=== PATIENT | female | born 1975 | race Caucasian/White ===

== ENCOUNTER → 2017-10-08 | Outpatient (CLI) | payer BC ==
--- NOTE | 2017-10-10 11:47 | MM ---
Reason for exam: screening (asymptomatic). History: Patient is nulliparous. Family history of breast cancer in paternal grandmother. Implants in both breasts, 2015. Physical Findings: A clinical breast exam by your physician is recommended on an annual basis and results should be correlated with mammographic findings. MG 3D Screen Mammo Imp/Cad Bilateral CC, MLO, and ID view(s) were taken. No prior studies available for comparison. The breast tissue is extremely dense which could obscure a lesion on mammography. There is no discrete abnormality. Bilateral retropectoral silicone implants. ASSESSMENT: Negative, BI-RAD 1 RECOMMENDATION: Routine screening mammogram of both breasts in 1 year.
== END | disposition home or self-care (01) ==
LOC: RADMAMWWP 13:34
PROVIDERS: ATTEND Obstetrics & Gynecology
DX: Z12.31 Encounter for screening mammogram for malignant neoplasm of breast (principal)
CPT/HCPCS: 77063; 77067

== ENCOUNTER → 2018-01-08 | Outpatient (CLI) | payer BC ==
[2018-01-08 18:05] LABS: Basophils # (A) 0.1 k/uL (0-0.2); Basophils % (A) 1 %; Eosinophils # (A) 0.3 k/uL (0-0.7); Eosinophils % (A) 3 %; HCT 44.9 % (34.0-46.0); HGB 14.8 gm/dL (11.4-16.0); Lymphocytes # (A) 2.8 k/uL (1.0-4.8); Lymphocytes % (A) 26 %; MCH 33.1 pg (25.0-35.0); MCV 100.2 fL (80.0-100.0); Mean Platelet Volume 6.3; Monocytes # (A) 0.4 k/uL (0-1.0); Monocytes % (A) 4 %; Neutrophils # (A) 6.9 k/uL (1.3-7.7); Neutrophils % (A) 65 %; Platelet Count 392 k/uL (150-450); RBC 4.48 m/uL (3.80-5.40); RDW 12.5 % (11.5-15.5); WBC 10.7 k/uL (3.8-10.6)
== END | disposition home or self-care (01) ==
LOC: LABPAT 16:28
PROVIDERS: ATTEND Obstetrics & Gynecology
DX: Z01.812 Encounter for preprocedural laboratory examination (principal); R31.9 Hematuria, unspecified
CPT/HCPCS: 36415; 85025

== ENCOUNTER 2018-01-09 09:09 | Day surgery (SDC) | payer BC ==
[~2018-01-09 09:09] MED LIST: Pre Op ABX Message 1 EACH MISC MISCELLANE ONE
[2018-01-09] MEDS ORDERED: ONDANSETRON 4 MG/2 ML VIAL IVP ONE (09:35)
[2018-01-09] MEDS ORDERED: fentaNYL (PF) 50 MCG/ML 2 ML AMP IV PRN (09:35)
[2018-01-09] MEDS ORDERED: DEXAMETHASONE SOD PHOSPHATE 10 MG/ML 1 ML VIAL IV ONE (09:35)
[2018-01-09] MEDS ORDERED: SCOPOLAMINE 1.5MG/72HR PATCH TRANSDERM ONE (09:35)
[2018-01-09] MEDS ORDERED: LACTATED RINGERS 1,000 ML IV SCH (09:35)
[2018-01-09] MEDS ORDERED: MIDAZOLAM 2 MG/2 ML VIAL IV PRN (09:35)
[2018-01-09] MEDS ORDERED: fentaNYL (PF) 50 MCG/ML 2 ML AMP ONE (10:02)
[2018-01-09] MEDS ORDERED: LIDOCAINE 1% INJ 10MG/ML (20 ML MDV) ONE (10:02)
[2018-01-09] MEDS ORDERED: PROPOFOL 10 MG/ML 20 ML VIAL IV ONE (10:02)
[2018-01-09] MEDS ORDERED: MIDAZOLAM 2 MG/2 ML VIAL ONE (10:02)
[2018-01-09] MEDS ORDERED: LIDOCAINE 1%-EPI 1:100,000 30 ML VIAL SQ ONE (10:14)
--- NOTE | 2018-01-09 10:30 | P.OP ---
Date of Procedure: 01/09/18 Preoperative Diagnosis: Pelvic pain Hematometra status post endometrial ablation Postoperative Diagnosis: Same Procedure(s) Performed: Dilation and curettage Anesthesia: MAC Surgeon: Lorenza Rios Estimated Blood Loss (ml): 5 IV fluids (ml): 400 Urine output (ml): 10 Pathology: other (Endometrial curettings) Condition: stable Disposition: PACU Operative Findings: Small, freely mobile uterus with second to third degree uterine descensus. Densely scarred endometrial cavity. Description of Procedure: After the patient was met in the preoperative holding area and all questions were answered, she was taken to the operating room where anesthetic was administered without incident. She was in positioned, prepped and draped in the dorsal lithotomy position. Single-sided speculum was placed in the vagina and the cervix was grasped anteriorly with a single-tooth tenaculum. She does have with downward traction third-degree prolapse of the uterus. Paracervical block with lidocaine plus epinephrine was placed. The smallest Hegar dilator was utilized to gently attempts to dilate the cervix. This was able to be easily passed. Approximately 4 cm where very dense tissue was encountered. Further dilation of the cervix was gently attempted however I do not believe I was able to enter the endometrial cavity. Curettings were taken but I believe again this is from the endocervical canal. I do not believe the heme endometrial was accessed or drained. I believe further attempts at entering the uterine cavity her dilating might lead to uterine perforation with all potential competitions associated with that. Decision was therefore made to terminate the procedure.
[2018-01-09 10:36] VITALS: TEMP 97.7
[2018-01-09 10:51] VITALS: RESP 16
[2018-01-09 11:42] VITALS: BP 102/65; PULSE 65
== END 2018-01-09 11:51 | disposition home or self-care (01) ==
LOC: OR 09:09
PROVIDERS: ATTEND Obstetrics & Gynecology
DX: N85.7 Hematometra (principal); N81.3 Complete uterovaginal prolapse; J45.909 Unspecified asthma, uncomplicated; K21.9 Gastro-esophageal reflux disease without esophagitis; F17.210 Nicotine dependence, cigarettes, uncomplicated; Z87.11 Personal history of peptic ulcer disease; Z79.1 Long term (current) use of non-steroidal anti-inflammatories (NSAID); Z79.51 Long term (current) use of inhaled steroids; Z79.899 Other long term (current) drug therapy; Z88.5 Allergy status to narcotic agent
CPT/HCPCS: 81025; 88305; 58120; J2250; J1100; J2405; J2001; J3010; J2704

== ENCOUNTER → 2018-01-30 | Outpatient (CLI) | payer BC ==
[2018-01-30 12:22] LABS: Basophils # (A) 0.1 k/uL (0-0.2); Basophils % (A) 1 %; Eosinophils # (A) 0.4 k/uL (0-0.7); Eosinophils % (A) 5 %; HCT 47.2 % (34.0-46.0); HGB 14.8 gm/dL (11.4-16.0); Lymphocytes # (A) 2.7 k/uL (1.0-4.8); Lymphocytes % (A) 28 %; MCH 30.7 pg (25.0-35.0); MCHC 31.3 g/dL (31.0-37.0); MCV 98.2 fL (80.0-100.0); Mean Platelet Volume 6.3; Monocytes # (A) 0.5 k/uL (0-1.0); Monocytes % (A) 5 %; Neutrophils # (A) 5.9 k/uL (1.3-7.7); Neutrophils % (A) 60 %; Platelet Count 394 k/uL (150-450); RBC 4.81 m/uL (3.80-5.40); RDW 12.5 % (11.5-15.5); WBC 9.7 k/uL (3.8-10.6)
[2018-01-30 12:43] LABS: Anion Gap 8 mmol/L; Blood Urea Nitrogen 13 mg/dL (7-17); Carbon Dioxide 25 mmol/L (22-30); Chloride 106 mmol/L (98-107); Glucose 102 mg/dL (74-99); Potassium 4.9 mmol/L (3.5-5.1); Sodium 139 mmol/L (137-145)
== END | disposition home or self-care (01) ==
LOC: LABPAT 11:55
PROVIDERS: ATTEND Obstetrics & Gynecology
DX: Z01.812 Encounter for preprocedural laboratory examination (principal); N94.6 Dysmenorrhea, unspecified
CPT/HCPCS: 36415; 80051; 82565; 82947; 84520; 85025; 87086

== ENCOUNTER 2018-02-02 07:40 | Observation (INO) | payer BC ==
[2018-01-22 14:57] VITALS: BMI 18.8
[~2018-02-02 07:40] MED LIST changes: +DEXAMETHASONE SOD PHOSPHATE 10 MG/ML 1 ML VIAL IV ONE; +LACTATED RINGERS 1,000 ML IV SCH; +LIDOCAINE 1% 20 ML VIAL (10MG/ML) FOR IV START INTRADERMA PRN; +MIDAZOLAM 2 MG/2 ML VIAL IV PRN; +ONDANSETRON 4 MG/2 ML VIAL IVP ONE; -Pre Op ABX Message 1 EACH MISC MISCELLANE ONE; +SCOPOLAMINE 1.5MG/72HR PATCH TRANSDERM ONE; +ceFAZolin IN SWFI 2 GM/20 ML SYRINGE IVP ONE
[2018-02-02] MEDS ORDERED: FAMOTIDINE 20 MG/2 ML VIAL ONE (08:25)
[2018-02-02] MEDS ORDERED: METOCLOPRAMIDE 5 MG/ML 2 ML VIAL ONE (08:25)
[2018-02-02] MEDS ORDERED: KETOROLAC 30 MG/ML 1 ML VIAL IVP PRN (08:49)
[2018-02-02] MEDS ORDERED: diphenhydrAMINE 50 MG/ML 1 ML VIAL IVP PRN (08:49)
[2018-02-02] MEDS ORDERED: NALBUPHINE 10 MG/ML VIAL (10ML MDV) IV PRN (08:49)
[2018-02-02] MEDS ORDERED: NALOXONE 0.4 MG/ML 1 ML VIAL IV PRN (08:49)
[2018-02-02] MEDS ORDERED: GLYCOPYRROLATE 0.2 MG/ML 2 ML VIAL ONE (09:01)
[2018-02-02] MEDS ORDERED: fentaNYL (PF) 50 MCG/ML 2 ML AMP ONE (09:01)
[2018-02-02] MEDS ORDERED: PROPOFOL 10 MG/ML 20 ML VIAL IV ONE (09:01)
[2018-02-02] MEDS ORDERED: ROCURONIUM BROMIDE 10 MG/ML 10 ML VIAL IV ONE (09:01)
[2018-02-02] MEDS ORDERED: NEOSTIGMINE 1 MG/ML 10 ML VIAL ONE (09:01)
[2018-02-02] MEDS ORDERED: LIDOCAINE 1% INJ 10MG/ML (20 ML MDV) ONE (09:01)
[2018-02-02] MEDS ORDERED: SUCCINYLCHOLINE CHLORIDE 100 MG/5 ML SYR IV ONE (09:01)
[2018-02-02] MEDS ORDERED: VASOPRESSIN 20 UNIT/ML 1 ML VIAL IM ONE (09:25)
[2018-02-02] MEDS ORDERED: LACTATED RINGERS 1,000 ML IV ONE (09:54)
[2018-02-02] MEDS ORDERED: BACITRACIN OINT 1 EACH PACKET TOPICAL ONE (10:13)
--- NOTE | 2018-02-02 10:23 | P.OP ---
Date of Procedure: 02/02/18 Preoperative Diagnosis: Hematometra Pelvic pain Postoperative Diagnosis: Same Procedure(s) Performed: Total vaginal hysterectomy Anesthesia: CYDNEYA, hazel Surgeon: Lorenza Rios Vice Chairman #1: Homar Salazar Estimated Blood Loss (ml): 10 IV fluids (ml): 800 Urine output (ml): 35 Pathology: other (Uterus) Condition: stable Disposition: PACU Operative Findings: Small, normal appearing cervix and uterus. Bilateral normal-appearing fallopian tubes and ovaries. Description of Procedure: After the patient and her were met in the preoperative holding area and all questions were answered, she was taken to the operating room where anesthetic was administered without incident. She was positioned, prepped and draped in the dorsal high lithotomy position. The bladder was drained for a scant amount of urine at the beginning of the procedure. Weighted speculum was placed in the vagina and the cervix was grasped anteriorly with a single-tooth tenaculum. Dilute vasopressin solution was then infused circumferentially and the vaginal mucosa about the cervix. Scalpel was then utilized to make a circumferential incision around the cervix. The anterior and posterior vaginal Koza was bluntly and dissected away from the underlying cervix. The posterior vaginal Koza was placed on countertraction and the posterior peritoneum was attempted to be entered. Was not on immediately clear the posterior peritoneum had been entered therefore the anterior peritoneum was further dissected away. The Dolly clamps were utilized to clamp cut and suture ligate the uterosacral ligaments. These were tagged bilaterally. 2-0 Vicryl suture was used. The posterior peritoneum then was easier to visualize was placed again on countertraction. It was then entered sharply. The posterior peritoneum was tagged with a 2-0 Vicryl suture and the short weighted speculum was replaced with the long weighted speculum. The anterior vaginal Koza bladder were further advanced. The broad ligaments were clamped cut and suture ligated. The uterine vascularity was clamped cut and suture ligated bilaterally. This allowed for the posterior fundus of the uterus to be delivered. The anterior peritoneum was then entered with the electrocautery. The cornual pedicles were then clamped, cut and doubly suture ligated bilaterally. The right and left ovaries were easily visualized and appeared small and normal. There was no active bleeding noted. Therefore the weighted speculum was removed the short weighted speculum was replaced. The peritoneum was then closed in a pursestring fashion. The uterosacral ligaments that had previously been tagged were reapproximated in the midline incorporating the vaginal mucosa laterally. The cuff was then closed anterior to posterior in an interrupted fashion with 0 Vicryl suture. The vaginal Koza was observed and noted to be hemostatic. Bacitracin-soaked 2 inch iodoform gauze was then placed in the vagina and a Rodríguez catheter was placed. Clear urine was noted. All counts reported to me as correct by the operating room staff and the patient was awoken from anesthetic and transported to recovery area in good condition.
[2018-02-02] MEDS ORDERED: ALBUTEROL NEBULIZED 2.5 MG/3 ML INHALATION PRN (10:31)
[2018-02-02] MEDS: HYDROmorphone 0.5 MG/0.5 ML SYRINGE IVP PRN ×2 (10:35→11:08)
[2018-02-02] MEDS ORDERED: HYDROcodone/APAP 5-325MG 1 EACH TAB PO PRN (10:37)
[2018-02-02] MEDS ORDERED: IBUPROFEN 600 MG TAB PO PRN (10:37)
[2018-02-02] MEDS ORDERED: LACTATED RINGERS 1,000 ML IV SCH (10:37)
[2018-02-02] MEDS ORDERED: SENNOSIDES-DOCUSATE SODIUM 1 EACH TAB PO PRN (10:37)
[2018-02-02] MEDS ORDERED: ONDANSETRON 4 MG/2 ML VIAL IVP PRN (10:37)
[2018-02-02] MEDS ORDERED: METOCLOPRAMIDE 5 MG/ML 2 ML VIAL IVP PRN (10:37)
[2018-02-02] MEDS ORDERED: SIMETHICONE 80 MG CHEWABLE PO PRN (10:37)
[2018-02-02] MEDS ORDERED: traMADol 50 MG TAB PO PRN (16:43)
[2018-02-02] MEDS: KETOROLAC 30 MG/ML 1 ML VIAL IVP PRN (19:29)
[2018-02-03] MEDS: KETOROLAC 30 MG/ML 1 ML VIAL IVP PRN (04:38)
[2018-02-03 04:54] VITALS: RESP 18
[2018-02-03 06:43] LABS: Basophils # (A) 0.1 k/uL (0-0.2); Basophils % (A) 0 %; Eosinophils # (A) 0.3 k/uL (0-0.7); Eosinophils % (A) 2 %; HCT 39.8 % (34.0-46.0); HGB 12.6 gm/dL (11.4-16.0); Lymphocytes # (A) 3.9 k/uL (1.0-4.8); Lymphocytes % (A) 33 %; MCH 30.8 pg (25.0-35.0); MCHC 31.6 g/dL (31.0-37.0); MCV 97.4 fL (80.0-100.0); Mean Platelet Volume 6.5; Monocytes # (A) 0.6 k/uL (0-1.0); Monocytes % (A) 5 %; Neutrophils # (A) 6.7 k/uL (1.3-7.7); Neutrophils % (A) 57 %; Platelet Count 318 k/uL (150-450); RBC 4.09 m/uL (3.80-5.40); RDW 12.4 % (11.5-15.5); WBC 11.8 k/uL (3.8-10.6)
--- NOTE | 2018-02-03 07:18 | P.PN ---
Progress Note - Text 02/03 715am 42-year-old female status post vaginal hysterectomy by Dr. Rios. Patient had SPINAL Duramorph for postop pain control, patient has a VAS of 0 with no complains of nausea vomiting or pruritus. Doing well
[2018-02-03 07:58] VITALS: BP 101/63; PULSE 54; TEMP 97.8
--- NOTE | 2018-02-03 08:30 | P.DS ---
Providers Date of admission: 02/03/18 05:03 Expected date of discharge: 02/03/18 Attending physician: Lorenza Rios Primary care physician: Mariusz Ruby - Discharge Diagnosis(es) (1) Pelvic pain Current Visit: Yes Status: Acute (2) Hematometra Current Visit: Yes Status: Acute Hospital Course: This is a 42-year-old woman with pelvic pain and heme endometrial status post endometrial ablation in the past. Conservative management had failed. She was therefore admitted on 02/02/2018 to undergo total vaginal hysterectomy. She had the procedure done under a spinal anesthetic with unremarkable findings at the time of surgery. Please see the operative report for details. She did very well postoperatively. By the evening of postoperative day 0 she was tolerating a general diet and was ambulating. By postoperative day #1 her Rodríguez catheter and vaginal packing had been removed. She had no active vaginal bleeding. Her vital signs were stable. Her pain was well-controlled with oral pain medications and she was ambulating and voiding without difficulty. Her physical examination was unremarkable and her postoperative labs were stable. She was therefore discharged home on postoperative day #1 with routine instructions for care and follow-up. Plan - Discharge Summary New Discharge Prescriptions: No Action Albuterol Inhaler [Ventolin Hfa Inhaler] 2 puff INHALATION BID PRN PRN Reason: sob Ranitidine HCl [Zantac] 75 mg PO BID PRN PRN Reason: Heartburn Amoxicillin 1,000 mg PO BID traMADol HCL [Ultram] 25 mg PO DIRECTED PRN PRN Reason: Pain Discharge Medication List Albuterol Inhaler [Ventolin Hfa Inhaler] 2 puff INHALATION BID PRN 09/18/15 [ History] Ranitidine HCl [Zantac] 75 mg PO BID PRN 09/19/15 [History] Amoxicillin 1,000 mg PO BID 01/22/18 [History] traMADol HCL [Ultram] 25 mg PO DIRECTED PRN 01/22/18 [History] Follow up Appointment(s)/Referral(s): Lorenza Rios MD [STAFF PHYSICIAN] - 2 Weeks Activity/Diet/Wound Care/Special Instructions: Follow-up in the office 2 weeks postoperatively. May use home prescription for tramadol for pain. Call the office with any concerning signs or symptoms including heavy vaginal bleeding, foul vaginal discharge, fever greater than 100.5, severe abdominal or pelvic pain, significant constipation or diarrhea. No heavy lifting, vigorous activities or driving for 2 weeks. Nothing in the vagina, no intercourse, tampons or douching for 6 weeks. Discharge Disposition: HOME SELF-CARE
[2018-02-03] MEDS ORDERED: ACETAMINOPHEN TAB 325 MG TAB PO PRN (10:28)
== END 2018-02-03 08:56 | disposition home or self-care (01) ==
LOC: OR 07:40 → 6PED 10:26 → OR 02-03 05:02 → 6PED 02-03 05:03
PROVIDERS: ADMIT Obstetrics & Gynecology; ATTEND Obstetrics & Gynecology
DX: R10.2 Pelvic and perineal pain (principal); R10.9 Unspecified abdominal pain; N94.6 Dysmenorrhea, unspecified; N85.7 Hematometra; G89.29 Other chronic pain; J45.909 Unspecified asthma, uncomplicated; F17.210 Nicotine dependence, cigarettes, uncomplicated; Z90.49 Acquired absence of other specified parts of digestive tract; Z87.11 Personal history of peptic ulcer disease; Z88.5 Allergy status to narcotic agent; Z79.899 Other long term (current) drug therapy; Z82.49 Family history of ischemic heart disease and other diseases of the circulatory system; Z80.8 Family history of malignant neoplasm of other organs or systems
CPT/HCPCS: 81025; 85025; 88307; 58260; G0378; J2250; J1200; J1100; J2765; J2405; J1885 ×2; J1170; J0690; 86850; 86900; 86901

== ENCOUNTER → 2021-01-25 | Outpatient (CLI) | payer BC ==
--- NOTE | 2021-01-29 08:45 | MM ---
Reason for exam: screening (asymptomatic). Last mammogram was performed 3 years and 4 months ago. History: Patient is nulliparous. Family history of breast cancer in paternal grandmother. Implants in both breasts, 2015. Physical Findings: A clinical breast exam by your physician is recommended on an annual basis and results should be correlated with mammographic findings. MG 3D Screen Mammo Imp/Cad Bilateral CC and MLO view(s) were taken. Prior study comparison: October 08, 2017, bilateral MG 3d screen mammo imp/cad. The breast tissue is heterogeneously dense. This may lower the sensitivity of mammography. Bilateral retropectoral implants. No significant changes when compared with prior studies. ASSESSMENT: Negative, BI-RAD 1 RECOMMENDATION: Routine screening mammogram of both breasts in 1 year. Patient should continue monthly self breast exams. A negative report should not preclude additional follow up of suspicious palpable abnormalities.
== END | disposition home or self-care (01) ==
LOC: RADMAMWWP 16:20
PROVIDERS: ATTEND Obstetrics & Gynecology
DX: Z12.31 Encounter for screening mammogram for malignant neoplasm of breast (principal); Z80.3 Family history of malignant neoplasm of breast
CPT/HCPCS: 77063; 77067

== ENCOUNTER 2021-02-10 22:07 | Emergency (ER) | payer BC ==
[2021-02-10 22:22] VITALS: TEMP 98.6
[2021-02-10] MEDS ORDERED: PANTOPRAZOLE 40 MG/10 ML VIAL IVP STA (22:41)
[2021-02-10] MEDS ORDERED: ONDANSETRON 4 MG/2 ML VIAL IVP STA (22:41)
[2021-02-10] MEDS ORDERED: SODIUM CHLORIDE 0.9% 1,000 ML IV STA (22:41)
[2021-02-10] MEDS ORDERED: KETOROLAC 15 MG/ML 1 ML VIAL IVP STA (22:42)
[2021-02-10] MEDS ORDERED: diphenhydrAMINE 50 MG/ML 1 ML VIAL IVP STA (22:43)
[2021-02-10 23:20] LABS: Basophils # (A) 0.1 k/uL (0-0.2); Basophils % (A) 1 %; Eosinophils # (A) 0.1 k/uL (0-0.7); Eosinophils % (A) 1 %; HGB 17.3 gm/dL (11.4-16.0); Lymphocytes # (A) 2.6 k/uL (1.0-4.8); Lymphocytes % (A) 19 %; MCH 33.5 pg (25.0-35.0); MCHC 34.5 g/dL (31.0-37.0); MCV 97.1 fL (80.0-100.0); Mean Platelet Volume 7.2; Monocytes # (A) 0.5 k/uL (0-1.0); Monocytes % (A) 4 %; Neutrophils # (A) 10.1 k/uL (1.3-7.7); Neutrophils % (A) 74 %; Platelet Count 443 k/uL (150-450); RBC 5.15 m/uL (3.80-5.40); RDW 11.8 % (11.5-15.5); WBC 13.7 k/uL (3.8-10.6)
[2021-02-10 23:26] LABS: Appearance,Urine Cloudy (Clear); Bilirubin,Urine Negative (Negative); Blood,Urine Trace (Negative); Color,Urine Yellow; Glucose,Urine (UA) Negative (Negative); Ketones,Urine 4+ (Negative); Leukocyte Esterase,Urine Negative (Negative); Mucus,Urine Many /hpf; Nitrite,Urine Negative (Negative); Protein,Urine 1+ (Negative); RBC,Urine 11 /hpf (0-5); Specific Gravity,Urine 1.032 (1.001-1.035); Squamous Epithelial Cell,Urine 3 /hpf (0-4); WBC,Urine 2 /hpf (0-5)
--- NOTE | 2021-02-10 23:28 | XR ---
EXAMINATION TYPE: XR KUB DATE OF EXAM: 02/10/2021 COMPARISON: NONE HISTORY: Pain TECHNIQUE: 2 views upright FINDINGS: There is no sign of intestinal obstruction or pneumoperitoneum. Fecal pattern is normal. Th ere are clips from cholecystectomy. Lung bases are clear. There are no pathologic calcifications. IMPRESSION: Nonacute abdomen.
[2021-02-10 23:35] LABS: Partial Thromboplastin Time 22.5 sec (22.0-30.0); Prothrombin Time 10.8 sec (9.0-12.0)
--- NOTE | 2021-02-10 23:35 | ED ---
Abdominal Pain HPI - General Chief Complaint: Abdominal Pain Stated Complaint: vomiting Time Seen by Provider: 02/10/21 22:27 Source: patient Mode of arrival: wheelchair Limitations: no limitations - History of Present Illness Initial Comments: Patient is a 45-year-old female presenting to the emergency Department with complaints of abdominal pain, nausea and vomiting for the past 3 days. She states she's had history of pancreatitis in the past and this feels similar. She states it's usually brought on by stress. They have been in [place] for t he past few days looking at houses. Patient denies any fevers or chills. She describes the pain is all epigastric, no radiation. She's had history of cholecystectomy, appendectomy, hysterectomy. She denies any diarrhea, no dysuria. She denies any chest pain or shortness of breath. She is no further complaints. - Related Data Home Medications Medication Instructions Recorded Confirmed Albuterol Inhaler (Mhu) [Ventolin 2 puff INHALATION BID PRN 09/18/15 02/03/18 Hfa Inhaler] raNITIdine HCL [Zantac] 75 mg PO BID PRN 09/19/15 02/03/18 Amoxicillin 1,000 mg PO BID 01/22/18 02/03/18 traMADol HCL [Ultram] 25 mg PO DIRECTED PRN 01/22/18 02/03/18 Previous Rx's Medication Instructions Recorded Ondansetron Odt [Zofran Odt] 4 mg PO Q8HR PRN #10 tab 02/11/21 Allergies Allergy/AdvReac Type Severity Reaction Status Date / Time codeine Allergy Severe Vomiting Verified 02/10/21 22:21 Review of Systems ROS Statement: Those systems with pertinent positive or pertinent negative responses have been documented in the HPI. ROS Other: All systems not noted in ROS Statement are negative. Past Medical History Past Medical History: Asthma, GERD/Reflux Additional Past Medical History / Comment(s): varicose veins, recent dx H. Pylori-finishing rx, IBS, arthritis, kidney stones, abdominal cramping History of Any Multi-Drug Resistant Organisms: None Reported Past Surgical History: Appendectomy, Breast Surgery, Cholecystectomy, Tonsillectomy, Uterine Ablation Additional Past Surgical History / Comment(s): OVARIAN CYST REMOVAL, RHINOPLASTY, BILATERAL BREAST IMPLANTS, D&C x2 Past Anesthesia/Blood Transfusion Reactions: Motion Sickness Past Psychological History: No Psychological Hx Reported Smoking Status: Current every day smoker Past Alcohol Use History: None Reported Past Drug Use History: None Reported - Past Family History Father Family Medical History: Cancer Additional Family Medical History / Comment(s): pancreatic Mother Family Medical History: Deep Vein Thrombosis (DVT) Additional Family Medical History / Comment(s): AORTIC ANEURYSM General Exam - General Exam Comments Initial Comments: GENERAL: Patient is well-developed and well-nourished. Patient is nontoxic and moderate distress. HEAD: Atraumatic, normocephalic. EYES: Pupils equal round and reactive to light, extraocular movements intact, sclera anicteric, conjunctiva are normal. Eyelids were unremarkable. ENT: Nares patent, oropharynx clear without exudates. Moist mucous membranes. NECK: Normal range of motion, supple without lymphadenopathy or JVD. LUNGS: Unlabored respirations. Breath sounds clear to auscultation bilaterally and equal. No wheezes rales or rhonchi. HEART: Regular rate and rhythm without murmurs, rubs or gallops. ABDOMEN: Soft, tender to palpation in epigastric region, normoactive bowel sounds. No guarding, no rebound. No masses appreciated. : Deferred MUSCULOSKELETAL: Normal extremities with adequate strength and normal range of motion, no pitting or edema. No clubbing or cyanosis. NEUROLOGICAL: Patient is alert and oriented x 3. PSYCH: Normal mood, normal affect. SKIN: Warm, Dry, normal turgor, no rashes or lesions noted. Limitations: no limitations Course Vital Signs 02/10/21 02/11/21 22:18 00:33 Temperature 98.6 F 98.6 F Pulse Rate 59 L 66 Respiratory 20 16 Rate Blood Pressure 99/61 93/60 O2 Sat by Pulse 99 97 Oximetry Medical Decision Making - Medical Decision Making Patient is a 45-year-old female here with epigastric pain, nausea and vomiting o shweta the past 2-3 days. She does have history of pancreatitis and this does feel similar. She is also been really stressed over the past 3-4 days and sometimes gets abdominal pain with this. Her vitals are stable. Labs reveal a slight white count at 13.7, this is most likely reactive, rest of labs are within normal limits including negative troponin, lipase is 81, lactic is 1.3. Patient's urine did show 4+ ketones. No signs of infection. The no acute process. Patient given fluids, Protonix, Toradol and Benadryl. She reports significant improvement in her symptoms, she is requesting to go home and rest. I will give her a starter pack of Zofran for any additional nausea. She'll follow-up with her doctors. Return parameters were discussed with her and she verbalized understanding. Case discussed with Dr. Flores. - Lab Data Result diagrams: 02/10/21 22:46 02/10/21 22:46 Lab Results 02/10/21 02/10/21 02/10/21 Range/Units 22:46 22:46 22:46 WBC 13.7 H (3.8-10.6) k/uL RBC 5.15 (3.80-5.40) m/uL Hgb 17.3 H (11.4-16.0) gm/dL Hct 50.0 H (34.0-46.0) % MCV 97.1 (80.0-100.0) fL MCH 33.5 (25.0-35.0) pg MCHC 34.5 (31.0-37.0) g/dL RDW 11.8 (11.5-15.5) % Plt Count 443 (150-450) k/uL MPV 7.2 Neutrophils % 74 % Lymphocytes % 19 % Monocytes % 4 % Eosinophils % 1 % Basophils % 1 % Neutrophils # 10.1 H (1.3-7.7) k/uL Lymphocytes # 2.6 (1.0-4.8) k/uL Monocytes # 0.5 (0-1.0) k/uL Eosinophils # 0.1 (0-0.7) k/uL Basophils # 0.1 (0-0.2) k/uL PT (9.0-12.0) sec INR (<1.2) APTT (22.0-30.0) sec Sodium 134 L (137-145) mmol/L Potassium 3.9 (3.5-5.1) mmol/L Chloride 101 (98-107) mmol/L Carbon Dioxide 19 L (22-30) mmol/L Anion Gap 14 mmol/L BUN 16 (7-17) mg/dL Creatinine 0.72 (0.52-1.04) mg/dL Est GFR (CKD-EPI)AfAm >90 (>60 ml/min/1.73 sqM) Est GFR (CKD-EPI)NonAf >90 (>60 ml/min/1.73 sqM) Glucose 102 H (74-99) mg/dL Plasma Lactic Acid Lakhwinder (0.7-2.0) mmol/L Calcium 9.9 (8.4-10.2) mg/dL Total Bilirubin 1.7 H (0.2-1.3) mg/dL AST 23 (14-36) U/L ALT 23 (4-34) U/L Alkaline Phosphatase 70 (38-126) U/L Troponin I (0.000-0.034) ng/mL Total Protein 7.1 (6.3-8.2) g/dL Albumin 4.7 (3.5-5.0) g/dL Amylase 33 (30-110) U/L Lipase 81 (23-300) U/L Urine Color Yellow Urine Appearance Cloudy H (Clear) Urine pH 6.0 (5.0-8.0) Ur Specific [place] 1.032 (1.001-1.035) Urine Protein 1+ H (Negative) Urine Glucose (UA) Negative (Negative) Urine Ketones 4+ H (Negative) Urine Blood Trace H (Negative) Urine Nitrite Negative (Negative) Urine Bilirubin Negative (Negative) Urine Urobilinogen 3.0 (<2.0) mg/dL Ur Leukocyte Esterase Negative (Negative) Urine RBC 11 H (0-5) /hpf Urine WBC 2 (0-5) /hpf Ur Squamous Epith Cells 3 (0-4) /hpf Urine Mucus Many H (None) /hpf 02/10/21 02/10/21 02/10/21 Range/Units 22:46 22:46 22:46 WBC (3.8-10.6) k/uL RBC (3.80-5.40) m/uL Hgb (11.4-16.0) gm/dL Hct (34.0-46.0) % MCV (80.0-100.0) fL MCH (25.0-35.0) pg MCHC (31.0-37.0) g/dL RDW (11.5-15.5) % Plt Count (150-450) k/uL MPV Neutrophils % % Lymphocytes % % Monocytes % % Eosinophils % % Basophils % % Neutrophils # (1.3-7.7) k/uL Lymphocytes # (1.0-4.8) k/uL Monocytes # (0-1.0) k/uL Eosinophils # (0-0.7) k/uL Basophils # (0-0.2) k/uL PT 10.8 (9.0-12.0) sec INR 1.0 (<1.2) APTT 22.5 (22.0-30.0) sec Sodium (137-145) mmol/L Potassium (3.5-5.1) mmol/L Chloride (98-107) mmol/L Carbon Dioxide (22-30) mmol/L Anion Gap mmol/L BUN (7-17) mg/dL Creatinine (0.52-1.04) mg/dL Est GFR (CKD-EPI)AfAm (>60 ml/min/1.73 sqM) Est GFR (CKD-EPI)NonAf (>60 ml/min/1.73 sqM) Glucose (74-99) mg/dL Plasma Lactic Acid Lakhwinder 1.3 (0.7-2.0) mmol/L Calcium (8.4-10.2) mg/dL Total Bilirubin (0.2-1.3) mg/dL AST (14-36) U/L ALT (4-34) U/L Alkaline Phosphatase (38-126) U/L Troponin I <0.012 (0.000-0.034) ng/mL Total Protein (6.3-8.2) g/dL Albumin (3.5-5.0) g/dL Amylase (30-110) U/L Lipase (23-300) U/L Urine Color Urine Appearance (Clear) Urine pH (5.0-8.0) Ur Specific [place] (1.001-1.035) Urine Protein (Negative) Urine Glucose (UA) (Negative) Urine Ketones (Negative) Urine Blood (Negative) Urine Nitrite (Negative) Urine Bilirubin (Negative) Urine Urobilinogen (<2.0) mg/dL Ur Leukocyte Esterase (Negative) Urine RBC (0-5) /hpf Urine WBC (0-5) /hpf Ur Squamous Epith Cells (0-4) /hpf Urine Mucus (None) /hpf - EKG Data EKG Comments: Sinus rhythm with short CO, no ST segment elevation. Ventricular rate 60, CO interval 106, QTC 418. Disposition Clinical Impression: Epigastric abdominal pain, Nausea & vomiting, Dehydration Disposition: HOME SELF-CARE Condition: Stable Instructions (If sedation given, give patient instructions): Abdominal Pain (ED) Additional Instructions: Please return to the Emergency Department if symptoms worsen or any other concerns. Continue to increase your fluid intake over the next few days. May take Zofran for any additional nausea, every 8 hours. Follow-up with your primary care physician. Prescriptions: Ondansetron Odt [Zofran Odt] 4 mg PO Q8HR PRN #10 tab PRN Reason: Nausea Is patient prescribed a controlled substance at d/c from ED?: No Referrals: Mariusz Ruby MD [Primary Care Provider] - 1-2 days Time of Disposition: 00:14
[2021-02-10 23:38] LABS: ALT 23 U/L (4-34); AST 23 U/L (14-36); African American GFR (CKD) >90 (>60 ml/min/1.73 sqM); Albumin 4.7 g/dL (3.5-5.0); Alkaline Phosphatase 70 U/L (38-126); Amylase 33 U/L (30-110); Anion Gap 14 mmol/L; Blood Urea Nitrogen 16 mg/dL (7-17); Calcium 9.9 mg/dL (8.4-10.2); Carbon Dioxide 19 mmol/L (22-30); Chloride 101 mmol/L (98-107); Glucose 102 mg/dL (74-99); Lipase 81 U/L (23-300); Non-African American GFR(CKD) >90 (>60 ml/min/1.73 sqM); Potassium 3.9 mmol/L (3.5-5.1); Sodium 134 mmol/L (137-145); Total Bilirubin 1.7 mg/dL (0.2-1.3); Total Protein 7.1 g/dL (6.3-8.2)
[2021-02-11] MEDS ORDERED: ONDANSETRON 4 MG ODT STARTER PACK 2 TAB BTL PO STA (00:13)
[2021-02-11 00:37] VITALS: BP 93/60; PULSE 66; RESP 16
== END 2021-02-11 00:34 | disposition home or self-care (01) ==
LOC: EC 22:07
DX: R10.13 Epigastric pain (principal); R11.2 Nausea with vomiting, unspecified; E86.0 Dehydration; J45.909 Unspecified asthma, uncomplicated; K21.9 Gastro-esophageal reflux disease without esophagitis; F17.200 Nicotine dependence, unspecified, uncomplicated; Z88.6 Allergy status to analgesic agent; Z87.442 Personal history of urinary calculi; Z90.49 Acquired absence of other specified parts of digestive tract; Z90.89 Acquired absence of other organs; Z87.19 Personal history of other diseases of the digestive system
CPT/HCPCS: 99284; 96374; 96375 ×3; 96361; 36415; 93005; 80053; 82150; 83605; 83690; 84484; 85025; 85610; 85730; 81001; 74018; J1200; J2405; J1885; S0119; C9113

== ENCOUNTER → 2022-11-18 | Outpatient (CLI) | payer BC ==
--- NOTE | 2022-11-18 13:03 | XR ---
EXAMINATION TYPE: XR KUB DATE OF EXAM: 11/18/2022 Comparison: 02/10/2021 Clinical History: 47-year-old female left kidney stone N20.0 Findings: Cholecystectomy clips. Nonobstructive bowel gas pattern. Moderate stool burden. Numerous pelvic phleb olith. Possible faint 4 mm calcification left mid abdomen. Lung bases are clear. Impression: Possible faint 4 mm left renal calculus. Cholecystectomy clips. Moderate stool burden.
== END | disposition home or self-care (01) ==
LOC: RADXRMAIN 12:02
PROVIDERS: ATTEND Urology
DX: N20.0 Calculus of kidney (principal)
CPT/HCPCS: 74018

== ENCOUNTER 2022-12-15 02:03 | Emergency (ER) | payer BC ==
[2022-12-15 02:27] VITALS: BP 100/51; PULSE 74; RESP 16; TEMP 97.6
[2022-12-15] MEDS ORDERED: SODIUM CHLORIDE 0.9% 1,000 ML IV STA (02:27)
--- NOTE | 2022-12-15 02:29 | ED ---
General Adult HPI - General Chief complaint: Urogenital Stated complaint: kidney stone Time Seen by Provider: 12/15/22 02:14 Source: patient Mode of arrival: EMS Limitations: no limitations - History of Present Illness Initial comments: Dictation was produced using [employer] dictation software. please excuse any grammatical, word or spelling errors. Chief Complaint: 47-year-old female with extensive kidney stone history presents via EMS from outside ER for further care History of Present Illness: 47 female presents with several hours of left-sided flank pain. She was seen at [facility] emergency Department were extensive workup was performed. She do not have white count of 18, 5 mm left proximal ureteral stone. She was also diagnosed with urinary tract infection. Patient was transferred here for further care. Outside ER doctor suspect that patient had infected kidney stone. Patient denies any fever. Denies any constitutional symptoms. She did not feel the need to be transferred to ER and initially wanted to be discharged home however ER doc told her that she could become septic. Patient states that her pain slowly migrated down peripherally. The ROS documented in this emergency department record has been reviewed and confirmed by me. Those systems with pertinent positive or negative responses have been documented in the HPI. All other systems are other negative and/or noncontributory. - Related Data Home Medications Medication Instructions Recorded Confirmed Albuterol Inhaler [Ventolin Hfa 2 puff INHALATION BID PRN 09/18/15 02/03/18 Inhaler] raNITIdine HCL [Zantac] 75 mg PO BID PRN 09/19/15 02/03/18 Amoxicillin 1,000 mg PO BID 01/22/18 02/03/18 traMADol HCL [Ultram] 25 mg PO DIRECTED PRN 01/22/18 02/03/18 Previous Rx's Medication Instructions Recorded Ondansetron Odt [Zofran Odt] 4 mg PO Q8HR PRN #10 tab 02/11/21 Cefpodoxime Proxetil [Vantin] 200 mg PO Q12HR 10 Days #20 tab 12/15/22 Allergies Allergy/AdvReac Type Severity Reaction Status Date / Time codeine Allergy Severe Vomiting Verified 02/10/21 22:21 Review of Systems ROS Statement: Those systems with pertinent positive or pertinent negative responses have been documented in the HPI. ROS Other: All systems not noted in ROS Statement are negative. Past Medical History Past Medical History: Asthma, GERD/Reflux Additional Past Medical History / Comment(s): varicose veins, recent dx H. Pylori-finishing rx, IBS, arthritis, kidney stones, abdominal cramping History of Any Multi-Drug Resistant Organisms: None Reported Past Surgical History: Appendectomy, Breast Surgery, Cholecystectomy, Tonsillectomy, Uterine Ablation Additional Past Surgical History / Comment(s): OVARIAN CYST REMOVAL, RHINOPLASTY, BILATERAL BREAST IMPLANTS, D&C x2 Past Anesthesia/Blood Transfusion Reactions: Motion Sickness Past Psychological History: No Psychological Hx Reported Smoking Status: Current every day smoker Past Alcohol Use History: None Reported Past Drug Use History: None Reported - Past Family History Father Family Medical History: Cancer Additional Family Medical History / Comment(s): pancreatic Mother Family Medical History: Deep Vein Thrombosis (DVT) Additional Family Medical History / Comment(s): AORTIC ANEURYSM General Exam - General Exam Comments Initial Comments: PHYSICAL EXAM: General Impression: Alert and oriented x3, not in acute distress HEENT: Normocephalic atraumatic, extra-ocular movements intact, pupils equal and reactive to light bilaterally, mucous membranes moist. Cardiovascular: Heart regular rate and rhythm Chest: Able to complete full sentences, no retractions, no tachypnea Abdomen: abdomen soft, non-tender, non-distended, no organomegaly Musculoskeletal: Pulses present and equal in all extremities, no peripheral edema Motor: no focal deficits noted Neurological: CN II-XII grossly intact, no focal motor or sensory deficits noted Skin: Intact with no visualized rashes Psych: Normal affect and mood Limitations: no limitations Course Vital Signs 12/15/22 02:15 Temperature 97.6 F Pulse Rate 74 Respiratory 16 Rate Blood Pressure 100/51 O2 Sat by Pulse 97 Oximetry Medical Decision Making - Medical Decision Making Was pt. sent in by a medical professional or institution (, PA, HOME CARE MANAGER, urgent care, hospital, or [facility]...) When possible be specific @ -Sent to us from outside ER for concern of infected kidney stone Did you speak to anyone other than the patient for history (EMS, parent, family, police, friend...)? What history was obtained from this source @ -Patient's at the bedside states the patient has extensive kidney stone history Did you review nursing and triage notes (agree or disagree)? Why? @ -I reviewed and agree with nursing and triage notes Were old charts reviewed (outside hosp., previous admission, EMS record, old EKG, old radiological studies, urgent care reports/EKG's, [facility] records)? Report findings @ -No old charts were reviewed Differential Diagnosis (chest pain, altered mental status, abdominal pain women, abdominal pain men, vaginal bleeding, musculoskeletal, weakness, fever, dyspnea, syncope, headache, dizziness, GI bleed, back pain, seizure, CVA, palpatations, mental health)? @ -not applicable EKG interpreted by me (3pts min.). @ -None done X-rays interpreted by me (1pt min.). @ -None done CT interpreted by me (1pt min.). @ -None done U/S interpreted by me (1pt. min.). @ -None done What testing was considered but not performed or refused? (CT, X-rays, U/S, labs)? Why? @ -None What meds were considered but not given or refused? Why? @ -None Did you discuss the management of the patient with other professionals (professionals i.e. , PA, HOME CARE MANAGER, lab, RT, psych nurse, sexual assault social worker, procedures tech, teacher, foreign policy officer, case briefer)? Give summary @ -Labs imaging and clinical presentation discussed with Dr. Rawls was agreeable for patient to be discharged with antibiotic medications and follow up in the office Was smoking cessation discussed for >3mins.? @ -No Was critical care preformed (if so, how long)? @ -No Were there social determinants of health that impacted care today? How? (Homelessness, low income, unemployed, alcoholism, drug addiction, transportation, low edu. Level, literacy, decrease access to med. care, half-way, rehab)? @ -No Was there de-escalation of care discussed even if they declined (Discuss DNR or withdrawal of care, Hospice)? DNR status @ -No What co-morbidities impacted this encounter? (DM, HTN, Smoking, COPD, CAD, Cancer, CVA, ARF, Chemo, Hep., AIDS, mental health diagnosis, sleep apnea, morbid obesity)? @ -None Was patient admitted / discharged? Hospital course, mention meds given and route, prescriptions, significant lab abnormalities, going to OR and other pertinent info. @ -47 Year-old male transferred from outside hospital for concerns of infected kidney stone. Transient documentation was reviewed incident diarrhea. Labs were missing and that was faxed over to us from [facility]. Vital signs are stable. Patient denies any constitutional symptoms. Urinalysis obtained. Greater than 182 red blood cells. Nitrates are negative. Patient did have 3+ ketones. Patient given continued IV fluids and analgesics. Disposition options were discussed. Patient we will discharge. Highly doubt that patient has UTI sepsis. Concern that patient's leukocytosis is stress-induced. She understands that she should return to emergency department if she has any worsening symptoms. Undiagnosed new problem with uncertain prognosis? @ -No Drug Therapy requiring intensive monitoring for toxicity (Heparin, Nitro, Insulin, Cardizem)? @ -No Were any procedures done? @ -No Diagnosis/symptom? Acute, or Chronic, or Acute on Chronic? Uncomplicated (without systemic symptoms) or Complicated (systemic symptoms)? @ -1. Symptomatic kidney stone Side effects of treatment? @ -No Exacerbation, Progression, or Severe Exacerbation? @ -No Poses a threat to life or bodily function? How? (Chest pain, [place], [place], pneumonia, PE, COPD, DKA, ARF, appy, cholecystitis, CVA, Diverticulitis, Homicidal, Suicidal, threat to staff... and all critical care pts) @ -No - Lab Data Lab Results 12/15/22 Range/Units 03:49 Urine Color Light Red Urine Appearance Clear (Clear) Urine pH 5.5 (5.0-8.0) Ur Specific [place] 1.025 (1.001-1.035) Urine Protein 1+ H (Negative) Urine Glucose (UA) Negative (Negative) Urine Ketones 3+ H (Negative) Urine Blood Large H (Negative) Urine Nitrite Negative (Negative) Urine Bilirubin Negative (Negative) Urine Urobilinogen <2.0 (<2.0) mg/dL Ur Leukocyte Esterase Small H (Negative) Urine RBC >182 H (0-5) /hpf Urine WBC 23 H (0-5) /hpf Ur Squamous Epith Cells 1 (0-4) /hpf Hyaline Casts 8 H (0-2) /lpf Urine Mucus Few H (None) /hpf Disposition Clinical Impression: Kidney stone Disposition: HOME SELF-CARE Condition: Fair Instructions (If sedation given, give patient instructions): Kidney Stones (ED) Prescriptions: Cefpodoxime Proxetil [Vantin] 200 mg PO Q12HR 10 Days #20 tab Is patient prescribed a controlled substance at d/c from ED?: No Referrals: Surjit Saavedra MD [STAFF PHYSICIAN] - 1-2 days Time of Disposition: 05:02
[2022-12-15 04:37] LABS: Appearance,Urine Clear (Clear); Bilirubin,Urine Negative (Negative); Blood,Urine Large (Negative); Color,Urine Light Red; Glucose,Urine (UA) Negative (Negative); Hyaline Casts,Urine 8 /lpf (0-2); Ketones,Urine 3+ (Negative); Leukocyte Esterase,Urine Small (Negative); Mucus,Urine Few /hpf; Nitrite,Urine Negative (Negative); PH, Urine 5.5 (5.0-8.0); Protein,Urine 1+ (Negative); RBC,Urine >182 /hpf (0-5); Specific Gravity,Urine 1.025 (1.001-1.035); Squamous Epithelial Cell,Urine 1 /hpf (0-4); Urobilinogen,Urine <2.0 mg/dL (<2.0); WBC,Urine 23 /hpf (0-5)
[2022-12-15] MEDS ORDERED: KETOROLAC 15 MG/ML 1 ML VIAL IVP STA (04:37)
[2022-12-15] MEDS ORDERED: ONDANSETRON 4 MG/2 ML VIAL IVP STA (04:37)
[2022-12-15] MEDS ORDERED: HYDROmorphone 0.5 MG/0.5 ML SYRINGE IVP STA (04:59)
== END 2022-12-15 05:22 | disposition home or self-care (01) ==
LOC: EC 02:03
DX: N20.0 Calculus of kidney (principal); J45.909 Unspecified asthma, uncomplicated; K21.9 Gastro-esophageal reflux disease without esophagitis; F17.200 Nicotine dependence, unspecified, uncomplicated; Z88.5 Allergy status to narcotic agent; Z79.899 Other long term (current) drug therapy
CPT/HCPCS: 81001; 87086; 99284; 96374; 96375 ×2; 96361; J2405; J1885; J1170

== ENCOUNTER → 2024-05-03 | Outpatient (CLI) | payer BC ==
--- NOTE | 2024-05-09 18:35 | MM ---
Reason for Exam: Hx of breast augmentation, asymptomatic. Last mammogram was performed 1 year(s) and 6 month(s) ago. Patient History: Menarche at age 14. Patient has no children. Hysterectomy at age 45. Postmenopausal. 2014, Bilateral Implants. Paternal grandmother had breast cancer. Risk Values: Deisy 5 year model risk: 1.0%. NCI Lifetime model risk: 10.2%. Prior Study Comparison: 10/08/2017 Bilateral Screening Mammogram, [facility]. 01/25/2021 Bilateral Screening Mammogram, [facility]. 11/01/2022 Bilateral MG 3D screen mammo imp/cad., [facility]. Tissue Density: There are scattered areas of fibroglandular density. Findings: Analyzed By CAD. The pattern is symmetrical. Right lateral breast prostheses are present. No suspicious groups of microcalcifications, spiculated or lobular masses, architectural distortion or other secondary signs of malignancy are mammographically apparent. Overall Assessment: Benign, BI-RAD 2 Management: Screening Mammogram of both breasts in 1 year. A negative mammogram report should not preclude additional follow up of suspicious palpable abnormalities. Patient should continue monthly self breast exam. A clinical breast exam by your physician is recommended on an annual basis and results should be correlated with mammographic findings. Note on Deisy scores and lifetime risk: 1. A Deisy score greater than 3% is considered moderate risk. If this is the case, consider specialist referral to assess eligibility for a risk reducing agent. 2. If overall lifetime risk for the development of breast cancer is 20% or higher, the patient may qualify for future screening with alternating mammogram and breast MRI. [facility], , 05/09/2024 6:32 PM. Electronically signed and approved by: José Luis Gallagher D.O. Radiologis
== END | disposition home or self-care (01) ==
LOC: RADMAMWWP 15:12
PROVIDERS: ATTEND Obstetrics & Gynecology
DX: Z12.31 Encounter for screening mammogram for malignant neoplasm of breast (principal); R92.323 Mammographic fibroglandular density, bilateral breasts; Z78.0 Asymptomatic menopausal state; Z80.3 Family history of malignant neoplasm of breast; Z98.82 Breast implant status
CPT/HCPCS: 77063; 77067